=== PATIENT | male | born 1995 | race American Indian/Alaskan Native ===

== ENCOUNTER 2016-08-15 00:08 | Emergency (ER) | payer SELFPAY ==
[2016-08-15 00:27] VITALS: BP 134/83
[2016-08-15 00:47] LABS: Hematocrit 41.2 % (35.5-45.6); Hemoglobin 13.5 gm/dl (11.8-15.2); Mean Corpuscular HGB Conc 33 % (32-34); Mean Corpuscular Hemoglobin 28 pg (28-32); Mean Corpuscular Volume 85 fl (84-94); Platelet Count 199 K/mm3 (140-440); Red Blood Count 4.87 M/mm3 (3.65-5.03); Red Cell Distribution Width 13.2 % (13.2-15.2); White Blood Count 2.5 K/mm3 (4.5-11.0)
[2016-08-15 01:07] LABS: Blood Urea Nitrogen 10 mg/dL (9-20); Calcium 9.7 mg/dL (8.4-10.2); Carbon Dioxide 25 mmol/L (22-30); Chloride 101.2 mmol/L (98-107); Glucose 93 mg/dL (75-100); Potassium 3.7 mmol/L (3.6-5.0); Sodium 141 mmol/L (137-145)
[2016-08-15 01:13] LABS: Anion Gap 19 mmol/L
[2016-08-15 04:33] LABS: Blastocytes % (Manual) 0 %
[2016-08-15 04:34] LABS: Anisocytosis 1+; Diff Status Complete; Hypochromasia 1+
== END 2016-08-15 00:32 | disposition left against medical advice (07) ==
LOC: ED 00:08
DX: R07.9 Chest pain, unspecified (principal); Z53.21 Procedure and treatment not carried out due to patient leaving prior to being seen by health care provider
CPT/HCPCS: 36415; 80048; 84484; 85007; 85025; 93005; 93010